=== PATIENT | male | born 1995 | race Caucasian/White ===

== ENCOUNTER 2019-08-23 14:07 | Emergency (ER) | payer OTHER, SELFPAY ==
--- NOTE | ~2019-08-23 | XR_ITS ---
EXAMINATION: XR hand LT min 3V EXAM DATE: 08/23/2019 15:47 INDICATION: Initial encounter following injury, with pain of the left hand. Laceration between 1st a nd 2nd digits. TECHNIQUE: Left hand frontal, lateral and oblique projections obtained and reviewed. There is no josh or study for comparison. FINDINGS: Left metacarpal bones are unremarkable. There are no acute fractures or dislocations ident ified. There is no subcutaneous gas. 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 There are no radiopaque foreign bodies. IMPRESSION: 1. No acute osseous findings. Reviewed, dictated and finalized at location A.
[2019-08-23 14:16] VITALS: BP 144/96; PULSE 100; RESP 16; TEMP 37.1; O2SAT 98
--- NOTE | 2019-08-23 16:19 | ED.WOUNDLAC ---
HPI - Wound/Laceration General Chief Complaint: Wound/Laceration Stated Complaint: Lac L hand Time Seen by Provider: 08/23/19 14:28 Source: patient Mode of arrival: ambulatory Limitations: no limitations History of Present Illness HPI narrative: This is a 24-year-old male that presents the emergency department for laceration to left hand sustained just prior to arrival. Reports he was cutting chicken and externally cut his left hand. Reports bleeding and pain to the area. He is up-to-date on tetanus. Denies decreased range of motion or numbness. Related Data Home Medications Medication Instructions Recorded Confirmed No Home Medications 08/23/19 08/23/19 Allergies Allergy/AdvReac Type Severity Reaction Status Date / Time No Known Allergies Allergy Verified 08/23/19 14:39 Review of Systems Review of Systems: Narrative: CONSTITUTIONAL: Denies fever SKIN: Reports laceration MUSCULOSKELETAL: Denies joint pain, or myalgia. NEUROLOGIC: Denies numbness All systems reviewed & are unremarkable except as noted in HPI and below PMFSH Past Medical History Medical History (Updated 08/23/19 @ 16:24 by Alana Bo PA-C) No active medical problems Social History Social History (Updated 08/23/19 @ 16:21 by Alana Bo PA-C) Substance use: never Exam Narrative: Exam Narrative: GENERAL: Well-appearing, well-nourished, and in no acute distress. HEAD: Normocephalic, atraumatic. EYES: EOMI. EXTREMITIES: Normal range of motion. No edema. Web space of left 1st and second finger with 1cm linear laceration into subcutaneous tissue SKIN: Warm, dry, no rash. NEURO: No focal deficits. Alert and oriented x3. PSYCH: Normal mood and affect Course Vital Signs Vital signs: Vital Signs Temperature 98.8 F 08/23/19 14:16 Pulse Rate 100 08/23/19 14:16 Respiratory Rate 16 08/23/19 14:16 Blood Pressure 144/96 H 08/23/19 14:16 Pulse Oximetry 98 08/23/19 14:16 Temperature 98.8 F 08/23/19 14:16 Pulse Rate 100 08/23/19 14:16 Respiratory Rate 16 08/23/19 14:16 Blood Pressure 144/96 H 08/23/19 14:16 Pulse Oximetry 98 08/23/19 14:16 Procedures Laceration Laceration 1: Date: 08/23/19 Time: 16:22 Site: hand Side (If applicable): left Size (cm): 1 Description: linear Depth: simple, single layer Local Anesthetic: lidocaine 1% and with epi Amount of anesthesia used (mL): 1 Pre-repair: irrigated ====== Skin Level ====== Skin layer closed with: nylon Size (cm): 5-0 Number of sutures: 1 Technique: simple, interrupted ====== Subcutaneous Layer ====== ====== Muscle Layer ====== ====== Tendon Layer ====== Dressing: Antibiotic ointment, Telfa, Kerlix and Coban MDM - Wound/Laceration MDM Narrative Medical decision making narrative: Patient presents the emergency department for laceration to left hand sustained just prior to arrival. Left hand x-rays without acute findings. Patient's wound was irrigated and closed with sutures. He is up-to-date on tetanus. Patient was educated on wound care. He is to follow-up with primary care doctor. He was given warnings to return to the ER Imaging Data Radiologist's impression: ITS Impressions Hand X-Ray 08/23/19 15:49 IMPRESSION: 1. No acute osseous findings. Critical Care Time Critical Care Time Critical Care Time: No Discharge Plan Discharge Clinical Impression: Laceration Patient Disposition: Home, Self-Care Condition: Stable Instructions: Care For Your Stitches (ED), Laceration (ED) Additional Instructions: Return to the emergency department if you experience fever, redness or swelling of your wound, abnormal drainage from your wound, or any other symptoms that are concerning to you. Apply antibiotic ointment daily. Do not soak the wound. Clean with mild soap and water daily Fo
[2019-08-23 16:30] VITALS: BP 154/89; PULSE 86; RESP 16; TEMP 36.9; O2SAT 99
== END 2019-08-23 16:54 | disposition home or self-care (01) ==
PROVIDERS: Emergency Provider Emergency Medicine
DX: S61.412A Laceration without foreign body of left hand, initial encounter (principal); W26.9XXA Contact with unspecified sharp object(s), initial encounter; Y93.G1 Activity, food preparation and clean up
CPT/HCPCS: 12001; 73130; 99283

== ENCOUNTER 2021-07-22 09:56 | Emergency (ER) | payer OTHER, SELFPAY ==
[2021-07-22 10:07] VITALS: BP 144/82; PULSE 72; RESP 18; TEMP 36.8; O2SAT 97
--- NOTE | 2021-07-22 10:46 | ED_ITS ---
HPI - Dental/Oral General Chief complaint: Dental/Oral Stated complaint: tooth Time Seen by Provider: 07/22/21 10:04 Source: patient Mode of arrival: ambulatory Limitations: no limitations History of Present Illness HPI Narrative: 26-year-old male presenting to the emergency department for evaluation of worsening dental pain. Patient states began having dental pain yesterday and describes it as a 7 out of 10. Patient has been taking antihistamines for pain control. Patient has not yet had follow-up with a dentist. Patient does describe left lower jaw pain and left lower facial swelling. Patient does report pain with opening her jaw but denies any difficulty breathing or swallowing. Related Data Allergies Allergy/AdvReac Type Severity Reaction Status Date / Time No Known Allergies Allergy Verified 07/22/21 10:10 Review of Systems Review of Systems: CONSTITUTIONAL: Denies fever, chills, or sweats. EYES: Denies visual changes, redness, or discharge. ENT: See HPI CARDIOVASCULAR: Denies chest pain, palpitations, or edema. RESPIRATORY: Denies cough or dyspnea. GASTROINTESTINAL: Denies abdominal pain, nausea, vomiting, or diarrhea. GENITOURINARY: Denies dysuria or hematuria. SKIN: Denies rash or itching. MUSCULOSKELETAL: Denies back pain, joint pain, or myalgia. NEUROLOGIC: Denies headache, numbness, or weakness. PMFSH Past Medical History Medical History (Updated 07/22/21 @ 10:51 by Meir Horvath MD) No active medical problems Social History Social History (Updated 08/23/19 @ 16:21 by Alana Bo PA-C) Substance use: never Exam Narrative: APPEARANCE: Well appearing, no pain, no distress, well-nourished. HEAD: normocephalic, atraumatic. Left lower facial swelling. EYES: PERRLA/EOMI, conjunctivae clear. NOSE: Normal no drainage THROAT: Pharynx clear, no exudate. NECK: Supple. No adenopathy, no masses. Course Course Emergency Course: Patient was started on antibiotics. Vital Signs Vital signs: Vital Signs Temperature 98.2 F 07/22/21 10:07 Pulse Rate 72 07/22/21 10:07 Respiratory Rate 18 07/22/21 10:07 Blood Pressure 144/82 H 07/22/21 10:07 Pulse Oximetry 97 07/22/21 10:07 Temperature 98.2 F 07/22/21 10:07 Pulse Rate 72 07/22/21 10:07 Respiratory Rate 18 07/22/21 10:07 Blood Pressure 144/82 H 07/22/21 10:07 Pulse Oximetry 97 07/22/21 10:07 Discharge Plan Discharge Clinical Impression: Dental caries, Toothache Patient Disposition: Home, Self-Care Condition: Stable Instructions: Antibiotic Form, Toothache (ED) Additional Instructions: Antibiotics as directed. Naproxen for pain control. Have close follow-up with a dentist. Prescriptions: New amoxicillin-pot clavulanate 875-125 mg tablet 1 tablet PO ONCE Qty: 14 RF: 0 naproxen 500 mg tablet 500 mg PO BID Qty: 10 RF: 0 Follow-up/Referrals: PHYSICIAN,[employer] [Primary Care Provider] - Stand Alone Forms: Work/School Release IP
[2021-07-22] MEDS: AMOXICILLIN/CLAVULANATE K 875-125 MG TAB 1 TABLET PO (10:58)
[2021-07-22] MEDS: IBUPROFEN 400 MG TABLET 800 MG PO (10:59)
== END 2021-07-22 11:04 | disposition home or self-care (01) ==
PROVIDERS: Emergency Provider Emergency Medicine
DX: K02.9 Dental caries, unspecified (principal)
CPT/HCPCS: 99283; A9270